=== PATIENT | male | born 1990 | race Caucasian/White ===

== ENCOUNTER 2024-10-10 10:09 | Emergency (ER) | payer BC, OTHER ==
[2024-10-10] MEDS: Ketorolac 30 MG/ML SDV IM ONE (11:30)
[2024-10-10 17:11] VITALS: BP 176/131; PULSE 85
== END 2024-10-10 11:00 | disposition home or self-care (01) ==
LOC: JD.ED 10:09
DX: M54.2 Cervicalgia (principal); Z79.899 Other long term (current) drug therapy
CPT/HCPCS: 96372; 99283; J1885; 99282